=== PATIENT | female | born 1955 | race Caucasian/White ===

== ENCOUNTER → 2023-02-24 | Emergency (ER) | payer BC, MEDICARE ==
[~2023-02-24] VITALS: Ht 157.5 cm; Wt 72.6 kg
[~2023-02-24] MED LIST: DIPH25CA83 PO; DOXY-326 PO; FAMO20TA8 PO; FAMOTIDINE. 20 MG/2 ML VIAL IV ONE; IV NORMAL SALINE 1000 ML BAG IV ONE; PRED50TA PO; methylPREDNISolone SOD SUCC 125 MG/2 ML VIAL IV ONE; methylPREDNISolone SOD SUCC 125 MG/2 ML VIAL ONE
--- NOTE | 2023-02-24 19:40 | NUR ---
Dr. Park evaluating patient at bedside. MSE in progresss.
--- NOTE | 2023-02-24 21:14 | NUR ---
Patient sleeping, eyes closed, resting comfortably in bed. No signs of acute distress noted.
--- NOTE | 2023-02-24 22:10 | NUR ---
Patient discharged to home in stable condition. Written and verbal after care instructions given to patient and son. Patient verbalizes understanding of instructions. Stressed follow up or return to ER for worsening s/s. Instructed patient not to drive.
[2023-02-24 22:11] VITALS: BP 120/70; TEMP 98.4; O2SAT 97
== END | disposition home or self-care (01) ==
LOC: ER 19:38
DX: T78.40XA Allergy, unspecified, initial encounter (principal); K21.9 Gastro-esophageal reflux disease without esophagitis; E03.9 Hypothyroidism, unspecified; Z88.2 Allergy status to sulfonamides; Z88.8 Allergy status to other drugs, medicaments and biological substances; Z79.2 Long term (current) use of antibiotics; Z79.899 Other long term (current) drug therapy; Y92.89 Other specified places as the place of occurrence of the external cause
CPT/HCPCS: 99284; 96374; 96361; 96375; J3490; J2930; J7040; A4663